=== PATIENT | female | born 1950 | race Caucasian/White ===

== ENCOUNTER 2017-05-25 12:33 | Day surgery (SDC) | payer MEDICARE ==
[~2017-05-25] VITALS: Ht 160 cm; Wt 124.3 kg
[~2017-05-25 12:33] MED LIST: Acetaminophen-1 EAC1 PO; CLEM1.34 PO; CYCL10 PO; Fish Oil 10001000 MG PO; GABA600; HYDCHL50 PO; Hawthorn Berry500 MG PO; Norco 5-325 Ta1 EACH PO; Omeprazole20 M1 PO; POTCHL20ER PO; PROBIOTIC1 EAC1 PO; Super B-50 Com1 EACH PO
[2018-04-04] MEDS ORDERED: TYLECOD3 PO (13:05)
== END 2017-05-25 14:38 | disposition home or self-care (01) ==
LOC: ORSCSDS 12:33
PROVIDERS: Internal Medicine Gastroenterology
PROC: 0DBM8ZX Excision of Descending Colon, Via Natural or Artificial Opening Endoscopic, Diagnostic (ICD-10-PCS; principal; 2017-05-25 14:00)
DX: Z12.11 Encounter for screening for malignant neoplasm of colon (principal); K63.5 Polyp of colon; K64.8 Other hemorrhoids; J44.9 Chronic obstructive pulmonary disease, unspecified; I10 Essential (primary) hypertension; K21.9 Gastro-esophageal reflux disease without esophagitis; E66.01 Morbid (severe) obesity due to excess calories; Z68.42 Body mass index [BMI] 45.0-49.9, adult; Z87.891 Personal history of nicotine dependence; Z79.899 Other long term (current) drug therapy
CPT/HCPCS: 88305; J2250; J7120

== ENCOUNTER 2019-06-25 11:53 | Inpatient (IN) | payer MEDICARE ==
[~2019-06-25] VITALS: Ht 160 cm; Wt 119.7 kg
[~2019-06-25 11:53] MED LIST changes: -Fish Oil 10001000 MG PO; -HYDCHL50 PO; -Omeprazole20 M1 PO; -POTCHL20ER PO; -Super B-50 Com1 EACH PO; +TYLECOD3 PO
[2019-06-25 12:55] LABS: BASOPHILS ABSOLUTE AUTO 0.05 K/mm3 (0.00-0.23); BASOPHILS PERCENT AUTO 0 % (0-2); EOSINOPHILS PERCENT AUTO 0 % (0-6); Hematocrit 46.5 % (33.0-51.0); Hemoglobin 15.5 g/dL (11.5-16.0); IMMATURE GRAN ABSOLUTE AUTO 0.05 K/mm3 (0.00-0.10); IMMATURE GRAN PERCENT AUTO 0 % (0-1); LYMPHOCYTES PERCENT AUTO 15 % (21-46); MONOCYTES ABSOLUTE AUTO 0.98 K/mm3 (0.16-1.47); MONOCYTES PERCENT AUTO 6 % (4-13); Mean Corpuscular HGB 28.9 pg (26.0-34.0); Mean Corpuscular HGB Conc 33.3 g/dL (31.5-36.5); Mean Corpuscular Volume 87 fL (80-100); Mean Platelet Volume 10.4 fL (9.1-12.4); NEUTROPHILS ABSOLUTE AUTO 12.23 K/mm3 (1.96-9.15); NEUTROPHILS PERCENT AUTO 78 % (41-73); Platelet Count 171 K/mm3 (150-400); RDW Coefficient Variation 13.3 % (11.7-14.2); RDW Standard Deviation 42.1 fL (35.1-46.3); Red Blood Cell Count 5.37 M/mm3 (3.80-5.20); White Blood Cell Count 15.61 K/mm3 (4.00-11.30)
[2019-06-25 13:09] LABS: Albumin, Blood 3.1 g/dL (3.4-5.0); Albumin/Globulin Ratio 0.6 (0.8-1.8); Bilirubin, Total 1.2 mg/dL (0.1-1.0); Bun/Creatinine Ratio 20.9 (12.0-20.0); Calcium, Blood 9.4 mg/dL (8.5-10.1); Creatinine, Blood 1.1 mg/dL (0.40-1.00); Globulin, Blood 5.1 g/dL (2.2-4.0); Potassium, Blood 3.5 mmol/L (3.5-5.5); Total Protein, Blood 8.2 g/dL (6.4-8.2)
[2019-06-25] MEDS ORDERED: POTCHL20ER PO (15:19)
[2019-06-25] MEDS ORDERED: Omeprazole20 M1 PO (15:20)
[2019-06-25] MEDS ORDERED: HYDCHL25 PO (15:21)
[2019-06-25] MEDS ORDERED: Advair Hfa 45-212 GM INH (15:21)
[2019-06-25] MEDS ORDERED: ALBU90OI INH (15:22)
[2019-06-25] MEDS ORDERED: Super B-50 Com1 EACH PO (15:45)
[2019-06-25] MEDS ORDERED: Fish Oil 10001000 MG PO (15:45)
[2019-06-25] MEDS ORDERED: NASACORT10.8 ML (15:47)
[2019-06-25] MEDS ORDERED: ALLERGY RELIEF PO (15:48)
[2019-06-25] MEDS ORDERED: DIPH50 PO (15:49)
--- NOTE | 2019-06-25 23:19 | NUR ---
PHYSICIAN COMMUNICATION CONTACTED THE SPLINE ROLLING MACHINE JOB SETTER PHYSICIAN, LYNDSAY MACDONALD, TO INFORM HER THAT THE PATIENT WAS SCHEDULED TO GET IV ANTIBIOTICS AND NEEDS A 250 ML IF FLUSH BAG OF NORMAL SALINE. SHE SAID TO GO AHEAD AND PUT THE ORDER IN.
[2019-06-26 06:03] LABS: BASOPHILS ABSOLUTE AUTO 0.02 K/mm3 (0.00-0.23); BASOPHILS PERCENT AUTO 0 % (0-2); EOSINOPHILS PERCENT AUTO 0 % (0-6); Hematocrit 43.4 % (33.0-51.0); Hemoglobin 14.1 g/dL (11.5-16.0); IMMATURE GRAN ABSOLUTE AUTO 0.05 K/mm3 (0.00-0.10); IMMATURE GRAN PERCENT AUTO 0 % (0-1); LYMPHOCYTES ABSOLUTE AUTO 1.42 K/mm3 (0.84-5.20); LYMPHOCYTES PERCENT AUTO 12 % (21-46); MONOCYTES ABSOLUTE AUTO 0.44 K/mm3 (0.16-1.47); MONOCYTES PERCENT AUTO 4 % (4-13); Mean Corpuscular HGB 28.2 pg (26.0-34.0); Mean Corpuscular HGB Conc 32.5 g/dL (31.5-36.5); Mean Corpuscular Volume 87 fL (80-100); Mean Platelet Volume 10.9 fL (9.1-12.4); NEUTROPHILS ABSOLUTE AUTO 9.52 K/mm3 (1.96-9.15); NEUTROPHILS PERCENT AUTO 83 % (41-73); Platelet Count 167 K/mm3 (150-400); RDW Coefficient Variation 13.2 % (11.7-14.2); RDW Standard Deviation 41.6 fL (35.1-46.3); White Blood Cell Count 11.45 K/mm3 (4.00-11.30)
[2019-06-26 06:23] LABS: Anion Gap 8 mmol/L (6-16); Blood Urea Nitrogen 19 mg/dL (8-24); Bun/Creatinine Ratio 23.9 (12.0-20.0); CO2, Blood 29 mmol/L (21-32); Chloride, Blood 100 mmol/L (98-108); Creatinine, Blood 0.79 mg/dL (0.40-1.00); Glomerular Filtration Rate >60 (60-); Glucose, Blood 145 mg/dL (70-99); Potassium, Blood 3.3 mmol/L (3.5-5.5); Sodium, Blood 137 mmol/L (136-145)
--- NOTE | 2019-06-26 07:17 | NUR ---
SHIFT SUMMARY PATIENT ALERT AND ORIENTED. UNABLE TO GET MUCH SLEEP OVERNIGHT. PATIENT IS ABLE TO WALK TO THE BATHROOM UNASSISTED, JUST SLOW GETTING UP TO STANDING POSITION. IV PATENT AND CURRENTLY INFUSING WITH VANOMYCIN. BED IN LOWEST POSITION WITH WHEELS LOCKED. CALL LIGHT WITHIN REACH. REPORT GIVEN TO ONCOMING RN.
--- NOTE | 2019-06-26 17:23 | NUR ---
SHIFT SUMMARY- PT A/O, PLESANT AND COOPERATIVE. SHE IS RECIEVING IV ANTIBIOTICS FOR CELLULITIS ON THE RIGHT LOWER LEG. THERE IS SOME DECREASE TO TO SIZE OF THE AFFECTED AREA AND PT REPORTS THAT IT IS STARTING TO BECOME LESS PAINFUL. SHE TOOK A SHOWER DURING THIS SHIFT. SHE IS EATING AND DRINKING WELL.
--- NOTE | 2019-06-27 04:57 | NUR ---
SHIFT SUMMARY ADMITTED FOR LEFT LEG CELLULITIS "[facility]". FULL CODE. RA, REGULAR DIET, INDEPENDENT IN ROOM. IV ANTIBIOTICS ARE SCHEDULED. HX: HTN, GERD, LOVE, PT IS A&O X4. STATES SHE FEELS MUCH IMPROVED SINCE ADMIT.
[2019-06-27] MEDS ORDERED: KEFLEX500 MG PO (11:12)
--- NOTE | 2019-06-27 11:52 | NUR ---
PT DISCHARGED FROM THE UNIT AT 1152. IV REMOVED. DISCHARGE INSTRUCTIONS REVIEWED. MEDICATIONS FAXED TO [facility] (). LEFT UNIT VIA WHEELCHAIR. WILL DRIVE HOME
== END 2019-06-27 11:40 | disposition home or self-care (01) | DRG 872 ==
LOC: ER 11:53 → MEDS 15:56 → ERHOLD 15:56 → MEDS 18:25
PROVIDERS: Physician Assistant; ADMIT Internal Medicine
DX: A41.9 Sepsis, unspecified organism (principal); L03.115 Cellulitis of right lower limb; Z68.42 Body mass index [BMI] 45.0-49.9, adult; I89.1 Lymphangitis; J44.9 Chronic obstructive pulmonary disease, unspecified; K21.9 Gastro-esophageal reflux disease without esophagitis; I10 Essential (primary) hypertension; E66.01 Morbid (severe) obesity due to excess calories; K75.81 Nonalcoholic steatohepatitis (NASH); A46 Erysipelas
CPT/HCPCS: 36415; 80048; 80053; 83605; 85025; 87040; 93971; 96374; 96375; 99285-25; J0690; J1650; J3370; J7050; J7512

== ENCOUNTER 2024-05-31 10:22 | Inpatient (IN) | payer MEDICARE ==
[~2024-05-31] VITALS: Ht 167.6 cm; Wt 126.1 kg
[~2024-05-31 10:22] MED LIST changes: +ADVAIR HFA INH; +ALBU90OI INH; +ALLERGY RELIEF PO; +DIPH50 PO; +FISH OIL 1,0001 EA10 PO; +HYDCHL25 PO; +KEFLEX500 MG PO; +NASACORT10.8 ML; +OMEP20ER PO; +POTCHL20ER PO; +SUPER B-50 COM1 EACH PO
[2024-05-31 11:41] LABS: BASOPHILS ABSOLUTE AUTO 0.05 K/mm3 (0.00-0.23); BASOPHILS PERCENT AUTO 1 % (0-2); EOSINOPHILS ABSOLUTE AUTO 0.01 K/mm3 (0.00-0.68); EOSINOPHILS PERCENT AUTO 0 % (0-6); Hematocrit 44.4 % (33.0-51.0); Hemoglobin 14.7 g/dL (11.5-16.0); IMMATURE GRAN ABSOLUTE AUTO 0.04 K/mm3 (0.00-0.10); IMMATURE GRAN PERCENT AUTO 0 % (0-1); LYMPHOCYTES ABSOLUTE AUTO 1.93 K/mm3 (0.84-5.20); LYMPHOCYTES PERCENT AUTO 18 % (21-46); MONOCYTES ABSOLUTE AUTO 0.73 K/mm3 (0.16-1.47); MONOCYTES PERCENT AUTO 7 % (4-13); Mean Corpuscular HGB 28.3 pg (26.0-34.0); Mean Corpuscular HGB Conc 33.1 g/dL (31.5-36.5); Mean Corpuscular Volume 86 fL (80-100); Mean Platelet Volume 10.3 fL (9.1-12.4); NEUTROPHILS ABSOLUTE AUTO 7.94 K/mm3 (1.96-9.15); NEUTROPHILS PERCENT AUTO 74 % (41-73); Platelet Count 181 K/mm3 (150-400); RDW Coefficient Variation 13.9 % (11.7-14.2); RDW Standard Deviation 44.1 fL (35.1-46.3); Red Blood Cell Count 5.19 M/mm3 (3.80-5.20)
[2024-05-31 11:59] LABS: Albumin, Blood 3.2 g/dL (3.4-5.0); Albumin/Globulin Ratio 0.6 (0.8-1.8); Bilirubin, Total 0.9 mg/dL (0.1-1.0); Bun/Creatinine Ratio 25.5 (12.0-20.0); Calcium, Blood 10.1 mg/dL (8.5-10.1); Creatinine, Blood 0.86 mg/dL (0.40-1.00); Globulin, Blood 5.1 g/dL (2.2-4.0); Potassium, Blood 3.8 mmol/L (3.5-5.5); Total Protein, Blood 8.3 g/dL (6.4-8.2)
[2024-05-31] MEDS ORDERED: NS 1,000 ML IV SCH (13:10)
[2024-05-31] MEDS ORDERED: CeFAZolin Sodium 2,000 MG in NS 100 ML IV ONE (13:10)
[2024-05-31] MEDS ORDERED: Lactated Ringer's 1,000 ML IV SCH ×2 (14:00→16:05)
[2024-05-31] MEDS ORDERED: FLU VACC TS2024-25(6MOS UP)/PF 45 MCG/0.5 ML SYRINGE IM SCH (15:45)
[2024-05-31] MEDS ORDERED: Albuterol 2.5 MG/3 ML VIAL INH PRN (16:15)
[2024-05-31] MEDS ORDERED: Mometasone/Formoterol MDI 100/5 mcg 13 GM INH SCH (16:20)
[2024-05-31] MEDS ORDERED: Lactobacil 2-S.Thermo-Bifido 1 1 Cap PO SCH (21:00)
[2024-05-31] MEDS ORDERED: DiphenhydrAMINE HCl 50 MG Cap PO SCH (21:00)
--- NOTE | 2024-05-31 21:28 | NUR ---
REPORT RECEIVED FROM GEMA BERMEO IN ED. THIS RN CALLED IN REPORT-REPORT RECEIVED AND AWAITNING PATIENTS ARRIVAL TO ROOM 324.
--- NOTE | 2024-05-31 21:46 | NUR ---
NEW ADMIT. PATIENT ARRIVED TO ROOM 324 FROM THE ER-THIS RN ON BREAK WHNE PATIENT ARRIVED-PER REPORT FROM BREAK NURSE PATIENT ABLE TO AMBULATE TO BED WITH OUT ISSUE. PATIENT ORIENTED TO ROOM AND NEEDS ADDRESSED. THIS RN TO ASSUME PATIENT CARE.
[2024-05-31 21:47] VITALS: BP 111/76
[2024-05-31] MEDS ORDERED: NS 250 ML IV PRN (22:20)
[2024-05-31] MEDS ORDERED: Percocet 5-3251 EACH PO (22:22)
[2024-05-31] MEDS ORDERED: OxyCODONE 5 mg/Acetamin 325 mg TABLET PO PRN (22:35)
[2024-05-31] MEDS ORDERED: CeFAZolin Sodium 2,000 MG in NS 100 ML IV SCH (23:00)
--- NOTE | 2024-06-01 04:03 | NUR ---
SHIFT SUMMARY. PATIENT IS A&OX4 AND INDEPENDENT IN ROOM. PATIENT CALLS APPROPRIATELY AND IS ABLE TO MAKE HER NEEDS KNOWN. PATIENT C/O PAIN R/T ARTHRITIS-MEDICATED X1 PER ORDERS. PATIENT RESTING WITH RESPIRATIONS EQUAL AND UNLABORED. PATIENT IS ON RA. ALL NEEDS ADDRESSED. BED IS LOCKED IN THE LOWEST POSITION WITH CALL LIGHT IN REACH. CARE IS ONGOING.
[2024-06-01 05:28] VITALS: BP 127/65
[2024-06-01] MEDS ORDERED: Omeprazole 20 MG CapCR PO SCH (06:00)
[2024-06-01 06:04] LABS: BASOPHILS ABSOLUTE AUTO 0.03 K/mm3 (0.00-0.23); BASOPHILS PERCENT AUTO 0 % (0-2); EOSINOPHILS ABSOLUTE AUTO 0.02 K/mm3 (0.00-0.68); EOSINOPHILS PERCENT AUTO 0 % (0-6); Hematocrit 37.9 % (33.0-51.0); Hemoglobin 12.5 g/dL (11.5-16.0); IMMATURE GRAN ABSOLUTE AUTO 0.04 K/mm3 (0.00-0.10); IMMATURE GRAN PERCENT AUTO 0 % (0-1); LYMPHOCYTES ABSOLUTE AUTO 2.04 K/mm3 (0.84-5.20); LYMPHOCYTES PERCENT AUTO 23 % (21-46); MONOCYTES PERCENT AUTO 9 % (4-13); Mean Corpuscular HGB 28.7 pg (26.0-34.0); Mean Corpuscular Volume 87 fL (80-100); Mean Platelet Volume 10.4 fL (9.1-12.4); NEUTROPHILS ABSOLUTE AUTO 6.11 K/mm3 (1.96-9.15); NEUTROPHILS PERCENT AUTO 68 % (41-73); Platelet Count 169 K/mm3 (150-400); RDW Coefficient Variation 14.1 % (11.7-14.2); Red Blood Cell Count 4.35 M/mm3 (3.80-5.20); White Blood Cell Count 9.04 K/mm3 (4.00-11.30)
[2024-06-01 06:39] LABS: Albumin, Blood 2.5 g/dL (3.4-5.0); Albumin/Globulin Ratio 0.6 (0.8-1.8); Bilirubin, Total 0.8 mg/dL (0.1-1.0); Calcium, Blood 9.1 mg/dL (8.5-10.1); Creatinine, Blood 0.77 mg/dL (0.40-1.00); Globulin, Blood 4.4 g/dL (2.2-4.0); Potassium, Blood 3.1 mmol/L (3.5-5.5); Total Protein, Blood 6.9 g/dL (6.4-8.2)
[2024-06-01 07:51] VITALS: BP 149/80
[2024-06-01] MEDS ORDERED: Potassium Chloride 10 Meq Tablet SA PO ONE (08:05)
[2024-06-01] MEDS ORDERED: Vitamin B Complex 1 EA Softgel PO SCH (09:00)
[2024-06-01] MEDS ORDERED: HydroCHLOROthiazide 25 mg Tab PO SCH (09:00)
[2024-06-01] MEDS ORDERED: Potassium Chloride 20 MEQ TabCR PO SCH (09:00)
[2024-06-01] MEDS ORDERED: Enoxaparin 40 MG/0.4 ML SYR SC SCH (09:00)
[2024-06-01] MEDS ORDERED: Docosahexanoic Acid/EPA 1,000 MG CAP PO SCH (09:00)
[2024-06-01] MEDS ORDERED: Fluconazole 100 MG Tab PO SCH (12:30)
[2024-06-01 15:53] VITALS: BP 137/63
--- NOTE | 2024-06-01 18:02 | NUR ---
SHIFT SUMMARY PT A&OX4 AND ANSWERS QUESTIONS APPROPRIATELY. PT RECEIVED SCHEDULED AND PRN MEDICATIONS. PT RECEIVED IV ANTIBIOTICS. PT FAMILY @ BEDSIDE FOR PART OF THE SHIFT. VSS, NO COMPLAINTS OF CP/PRESSURE OR SOB. NO ACUTE EVENTS AT THIS TIME. PT SPENT MOST OF SHIFT RELAXING IN A CHAIR. PT REPOSITIONED INDEPENDENTLY. FALL PRECAUTIONS IN PLACE AND CALL LIGHT IN REACH.
[2024-06-01 19:44] VITALS: BP 150/65
--- NOTE | 2024-06-02 04:47 | NUR ---
SHIFT SUMMARY. NO ACUTE CHANGES NOTED THIS SHIFT. PATIENT IS A&OX4, INDEPENDENT IN ROOM AND ABLE TO MAKE HER NEEDS KNOWN. PATIENT IS COOPERATIVE WITH CARE. PATIENT IS SATTING >92% ON RA. PAIN ASSESSED THIS SHIFT-PATIENT DENIES NEED FOR PAIN COVERAGE THIS SHIFT. BED IS LOCKED IN THE LOWEST POSITION WITH CALL LIGHT IN REACH. CARE IS ONGOING.
[2024-06-02 05:04] VITALS: BP 145/73
[2024-06-02 07:21] VITALS: BP 147/71
[2024-06-02 08:06] LABS: Bun/Creatinine Ratio 15.6 (12.0-20.0); Calcium, Blood 8.9 mg/dL (8.5-10.1); Creatinine, Blood 0.64 mg/dL (0.40-1.00); Potassium, Blood 3.4 mmol/L (3.5-5.5)
[2024-06-02 15:54] VITALS: BP 148/79
--- NOTE | 2024-06-02 19:12 | NUR ---
SHIFT SUMMARY NO ACUTE EVENTS DURING SHIFT. SHE IS UP AD KRYSTAL IN ROOM. DENIES NEED FOR PAIN MEDICATION TODAY. BED IN LOW POSITION, CALL LIGHT IN REACH. SHE IS ABLE TO MAKE NEEDS KNOWN.
[2024-06-02 19:53] VITALS: BP 139/81
[2024-06-03 05:23] VITALS: BP 140/75
--- NOTE | 2024-06-03 05:40 | NUR ---
SHIFT SUMMARY PT A&OX4 AND ANSWERS QUESTIONS APPROPRIATELY. PT RECEIVED SCHEDULED AND PRN MEDICATIONS WITH NO ADVERSE EFFECTS. PT INDEPENDENT IN THE ROOM. PT HAS NO COMPLAINTS OF CP/PRESSURE OR SOB. PT SPENT MOST OF SHIFT IN BED WITH EYES CLOSED AND RESPIRATIONS EVEN AND UNLABORED. PT REPOSITIONED INDEPENDENTLY. NO ACUTE EVENTS AT THIS TIME. PT LEFT IN A POSITION OF SAFETY WITH FALL PRECAUTIONS IN PLACE AND CALL LIGHT IN REACH.
[2024-06-03 06:47] LABS: Magnesium, Blood 1.9 mg/dL (1.6-2.4)
[2024-06-03 06:48] LABS: Calcium, Blood 9.3 mg/dL (8.5-10.1); Creatinine, Blood 0.67 mg/dL (0.40-1.00); Potassium, Blood 3.7 mmol/L (3.5-5.5)
[2024-06-03 07:24] VITALS: BP 149/74
[2024-06-03] MEDS ORDERED: Pantoprazole Sodium 40 MG Injection IV STA (12:52)
[2024-06-03] MEDS ORDERED: Mag Hydrox/Al Hydrox/Simeth 18 ML,Lidocaine 2% Viscous Soln 9 ML,Atropine/Scopalam/Hyos... PO ONE (12:55)
[2024-06-03 15:44] VITALS: BP 139/59
--- NOTE | 2024-06-03 16:39 | NUR ---
SHIFT SUMMARY PT AOX4, COOPERATIVE, ABLE TO MAKE NEEDS KNOWN. PT HAS BEEN AMUBLATING IN ROOM INDEPENDANTLY. NO PAIN COMPLAINT OF ANY KIND. POSSIBLE DC 06/03/23 REPORTS PT. TOERLATING PO AND IV MEDICATIONS WELL. NO OTHER ACUTE EVENTS TOOK PLACE THIS SHIFT. BED IN LOWEST POSITION, CALL LIGHT WITHIN REACH.
[2024-06-03 19:17] VITALS: BP 137/61
--- NOTE | 2024-06-04 02:50 | NUR ---
CHEMIST ENZYMES SUMMARY: PT ADMITTED FOR SEPSIS D/T CELLULITIS TO E. FULL CODE. PLAN TO D/C HOME IN AM WITH PO ABX. PA&O X4. MAKES NEEDS KNOWN AND USES CALL LIGHT APPROPRIATELY. PT INDEPENDENT WITH CARES. MEDICATED X1 WITH PRN PAIN MEDS PER EMAR ORDER; EFFECTIVE. NO ADVERSE SIDE EFFECTS NOTED TO IV ABX TX. NO ACUTE CHANGES NOTED. CARES CONTINUE ORDERED. CALL LIGHT IN REACH.
[2024-06-04 04:47] VITALS: BP 127/61
[2024-06-04 07:53] VITALS: BP 143/64
[2024-06-04] MEDS ORDERED: CEPH500 PO (14:02)
[2024-06-04] MEDS ORDERED: Diflucan100 MG PO (14:05)
[2024-06-04] MEDS ORDERED: VISBIOME 112.51 EACH PO (14:06)
--- NOTE | 2024-06-04 14:22 | NUR ---
DISCHARGE PT AOX4, COOPERATIVE, ABLE TO MAKE NEEDS KNOWN. IV DC'D BY GRZEGORZ KUMAR. THIS RN WENT OVER DISCHARGE PAPERWORK WITH PT AND SENT NEW MEDICATIONS TO [facility]. ATTEMPT TO CALL [facility] TO VERIFY THEY RECEIVING NEW PRESCIPTIONS, CALL UNABLE TO BE ANSWERED. INFORMED PT TO HAVE PHARMACY CALL BACK IF PROBLEMS ARISE. PT WAS TRANSFERRED DOWN TO PT ENTRANCE BY WHEELCHAIR AND [facility]. PT LEFT WITH BELONGINGS IN HAND AND DISCHARGE PAPERWORK.
--- NOTE | 2024-06-04 15:17 | NUR ---
PT RETURNED TO HOSPITAL TO TELL THIS RN THAT [facility] NEVER GOT NEW SCRIPTS FOR PT. REFAXED AND CALLED MULTIPLE TIMES UNTIL I HAD A CONVERSATIO WITH "[facility]" STATING THAT THEY WOULD START WORKING ON FILLING THE RPESCRIPTIONS.
== END 2024-06-04 14:30 | disposition home or self-care (01) | DRG 872 ==
LOC: ER 10:22 → MEDS 15:40
PROVIDERS: Student in an Organized Health Care Education/Training Program; ADMIT Family Medicine
DX: A41.9 Sepsis, unspecified organism (principal); E87.21 Acute metabolic acidosis; K76.6 Portal hypertension; L03.116 Cellulitis of left lower limb; Z68.41 Body mass index [BMI] 40.0-44.9, adult; K74.60 Unspecified cirrhosis of liver; J44.9 Chronic obstructive pulmonary disease, unspecified; E66.9 Obesity, unspecified; M19.90 Unspecified osteoarthritis, unspecified site; K21.9 Gastro-esophageal reflux disease without esophagitis; I10 Essential (primary) hypertension; E87.6 Hypokalemia; B35.1 Tinea unguium; R65.20 Severe sepsis without septic shock; Z79.899 Other long term (current) drug therapy; Z90.710 Acquired absence of both cervix and uterus; Z98.890 Other specified postprocedural states
CPT/HCPCS: 36415; 80048; 80053; 83605; 83735; 85025; 87040; 93971; 94640; 94664; 94760; 96365; 99285-25; A9270; J0690; J1650; J7030; J7050; J7120